=== PATIENT | female | born 1965 | race Caucasian/White ===

== ENCOUNTER 2017-07-04 17:12 | Inpatient (IN) | payer MEDICAID ==
[~2017-07-04] VITALS: Ht 157.5 cm; Wt 66.0 kg
--- NOTE | 2017-07-04 17:21 | NUR ---
PT AMBULATORY TO LOBBY WITH FAMILY. PT A&O X4, BREATHING E/U. PT AWAITING ROOM AVAILABILITY. EKG DONE IN TRIAGE AND SHOWN TO DOCTOR
--- NOTE | 2017-07-04 17:34 | NUR ---
RECEIVED AWAKE ALERT ORIENTED, C/O LT UPPER CHEST PAIN INCREASES ON ACTIVITY,TAKING DEEP BREATHS AND TENDER TO TOUCH SINCE YESTERDAY,
--- NOTE | 2017-07-04 18:11 | NUR ---
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 EASY
[2017-07-04 18:19] LABS: BASOPHIL % 0.5 % (0-2); PLATELET COUNT 178 x10^3mcL (130-400); RED CELL DISTRIBUTION WIDTH 14.5 % (11.5-14.5)
[2017-07-04 18:30] LABS: ALBUMIN 3.6 g/dL (3.4-5.0); ALKALINE PHOSPHATASE 81 U/L (46-116); ALT/SGPT 27 U/L (14-59); AST/SGOT 16 U/L (15-37); CALCIUM 8.9 mg/dL (8.5-10.1); CARBON DIOXIDE 23.3 mmol/L (21-32); CHLORIDE SERUM 102 mmol/L (98-107); CREATININE SERUM 0.8 mg/dL (0.6-1.0); GFR1 > 60 mL/min; GLUCOSE SERUM 102 mg/dL (74-106); POTASSIUM SERUM 3.5 mmol/L (3.5-5.1); SODIUM SERUM 138 mmol/L (136-145); TOTAL PROTEIN, SERUM 7.8 g/dL (6.4-8.2)
--- NOTE | 2017-07-04 19:05 | NUR ---
RECEIVED REPORT FROM MARINE HEARD. PT RESTING IN BED WITH EYES CLOSED. NO SIGNS OF DISTRESS NOTED AT THIS TIME.
[2017-07-04 20:18] LABS: AMPHETAMINE QUAL UR NONE DETECTED (NEG <=1000)
--- NOTE | 2017-07-04 20:20 | NUR ---
MED STUDENT AT BEDSIDE FOR INTERVIEW/EXAM. DAUGHTER AT BEDSIDE.
[2017-07-04] MEDS ORDERED: ASPIR 8181 MG PO (20:23)
[2017-07-04] MEDS ORDERED: FENOFIBRATE145 M1 PO (20:23)
--- NOTE | 2017-07-04 20:34 | NUR ---
REPORT GIVEN TO LUCAS HEARD.
[2017-07-04 20:39] LABS: microscopic required? NO
[2017-07-04 20:43] LABS: UA SPECIFIC GRAVITY 1.015 (1.005-1.035); urine erythrocyte NEGATIVE (NEGATIVE)
[2017-07-04 20:49] LABS: CHOLESTEROL/HDL RATIO 4.9; PHOSPHOROUS 3.8 mg/dL (2.5-4.9)
[2017-07-04 20:54] LABS: T3 TOTAL 1.08 ng/mL
[2017-07-04 21:00] LABS: FREE T4 0.96 ng/dL (0.76-1.46); FREE THYROXINE INDEX 3.1 ug/dL (1.4-4.5); T4(THYROXINE) 9.2 ug/dL (4.7-13.3)
--- NOTE | 2017-07-04 21:00 | NUR ---
REC'D PT FROM [facility]IA [place]. PT IS AAOX4. TELE #8 SR WITH DEPRESSED T-WAVE. C/O 8/10 CP. LUNG SOUNDS CLEAR. NO SOB NOTED. IV NOTED TO LAC. INTACT AND PATENT. ORIENTED PT TO CALL LIGHT. BED IN LOWEST POSITION. WILL ENDORSE TO PRIMARY RN.
[2017-07-04 21:01] VITALS: BP 142/89
--- NOTE | 2017-07-04 21:20 | NUR ---
REC'D REPORT FROM ALBERTO HEARD. DAUGHTER AT BEDSIDE. PT AAOX4, SPEECH CLEAR, FOLLOWS COMMANDS. [place] SPEAKING. REPORTS SOME ANXIETY. ON TELE 8 READING NSR. C/O 8/10 CP EXACERBATED BY MOVEMENT, DEEP BREATHS, AND PALPATION. WILL GIVE MORPHINE PER ORDER. DENIES RESP DISTRESS OR SOB. BREATHING EVEN/UNLABORED ON RA. NO EDEMA NOTED. DENIES ABD PAIN, TENDERNESS, OR N/V. VOIDING FREELY. AMBULATORY. SKIN INTACT. PT ORIENTED TO SURROUNDING AND DEVICES. CALL LIGHT WITHIN REACH, BED AT LOWEST POSITION. WILL CONTINUE TO MONITOR.
--- NOTE | 2017-07-04 21:30 | NUR ---
DR. GARCIA AND MEDICAL STUDENT IN TO SEE PT.
--- NOTE | 2017-07-04 23:21 | NUR ---
PT RESTING IN BED WITH EYES CLOSED. DAUGHTER AT BEDSIDE. DENIES PAIN AT THIS TIME. WILL CONTINUE TO MONITOR.
--- NOTE | 2017-07-05 02:04 | NUR ---
PT RESTING IN BED WITH EYES CLOSED. DAUGHTER AT BEDSIDE. NO SIGNS OF DISTRESS NOTED. BREATHING EVEN/UNLABORED ON RA. CALL LIGHT WITHIN REACH, BED AT LOWEST POSITION. WILL CONTINUE TO MONITOR.
--- NOTE | 2017-07-05 05:52 | NUR ---
PT RESTING IN BED. DAUGHTER AT BEDSIDE. DENIES ANY CP OR DISCOMFORT AT THIS TIME. DENIES RESP DISTRESS OR ANXIETY. BS 103, NO COVERAGE. CALL LIGHT WITHIN REACH, BED AT LOWEST POSITION. WILL ENDORSE TO DAY NURSE.
[2017-07-05 06:02] VITALS: BP 132/70
--- NOTE | 2017-07-05 08:07 | NUR ---
AT 0705 - RECEIVED PATIENT FROM NIGHT NURSE. PATIENT AWAKE, ALERT AND ORIENTED. MONITOR SHOWING SINUS RHYTHM; RATE 70'S. DENIES ANY CHEST PAIN. IV INFUSING NS AT 100ML/HR. AT 0730 - SITTING ON SIDE OF BED EATING BREAKFAST.
--- NOTE | 2017-07-05 09:01 | NUR ---
AT 0737 - SEEN BY DR TEJADA DURING MORNING ROUNDS. DR HAGER, DR DIGGS, HELLEN FOSS AND MYSELF PRIMARY NURSE ALSO PRESENT. DR TEJADA SPOKE WITH PATIENT IN [place]. PATIENT VERBALIZED WISH TO LEAVE AMA TODAY.
[2017-07-05 09:21] VITALS: BP 135/80
--- NOTE | 2017-07-05 11:41 | NUR ---
AT 1100 - PATIENT PROVIDED WITH PRINTED INFORMATION OF CHOLSTEROL AND DIET. PATIENT RESPONSIVE TO LIFESTYLE MODIFICATIONS. PATIENT ASKING ABOUT LEAVING HOSPITAL. AT 1130 - DR BENAVIDES HAS SPOKEN WITH PATIENT AND AMA FORM SIGNED. IV INFUSION DISCONTINUED AND PATIENT TAKEN OFF CARDIAC MONITORING. AWAITING PRESCRIPTION PROMISED BY DR TEJADA.
--- NOTE | 2017-07-05 11:55 | NUR ---
AT 1150 - PATIENT PROVIDED WITH PRESCRIPTION FOR IBUPROFEN 600 MG. INSTRUCTED TO FOLLOW-UP WITH PCP. IV CATHETER REMOVED ITNACT. PATIENT LEFT AMA WITH FAMILY. ESCORTED AMBULATORY TO FRONT LOBBY.
--- NOTE | 2017-07-05 12:42 | NUR ---
ECHO NOT DONE PT DISCHARGED
== END 2017-07-05 11:52 | disposition left against medical advice (07) | DRG 203 ==
LOC: ED 17:12 → DU 20:06
PROVIDERS: Emergency Medicine; Student in an Organized Health Care Education/Training Program; ADMIT Family Medicine
DX: M94.0 Chondrocostal junction syndrome [Tietze] (principal); I10 Essential (primary) hypertension; R73.03 Prediabetes; E78.2 Mixed hyperlipidemia; Z53.29 Procedure and treatment not carried out because of patient's decision for other reasons; Z68.26 Body mass index [BMI] 26.0-26.9, adult
CPT/HCPCS: 83880; 84439; J2270; J7030; Q0092

== ENCOUNTER 2018-01-06 21:56 | Emergency (ER) | payer MEDICAID ==
[~2018-01-06] VITALS: Ht 157.5 cm; Wt 66.2 kg
[~2018-01-06 21:56] MED LIST: ASPIR 8181 MG PO; FENOFIBRATE145 M1 PO
[2018-01-06 22:10] VITALS: Ht 157.5 cm; Wt 66.2 kg
[2018-01-07 00:09] VITALS: BP 154/90
== END 2018-01-07 00:09 | disposition home or self-care (01) ==
LOC: ED 21:56
DX: J11.1 Influenza due to unidentified influenza virus with other respiratory manifestations (principal)
CPT/HCPCS: Q0092

== ENCOUNTER 2018-12-30 02:30 | Emergency (ER) | payer MEDICAID ==
[~2018-12-30] VITALS: Ht 157.5 cm; Wt 67.3 kg
[2018-12-30 02:55] VITALS: Ht 157.5 cm; Wt 67.3 kg
[2018-12-30 05:33] VITALS: BP 146/93
== END 2018-12-30 05:33 | disposition home or self-care (01) ==
LOC: ED 02:30
DX: K29.70 Gastritis, unspecified, without bleeding (principal); J32.9 Chronic sinusitis, unspecified; E78.00 Pure hypercholesterolemia, unspecified; Z90.710 Acquired absence of both cervix and uterus

== ENCOUNTER 2020-08-31 21:33 | Emergency (ER) | payer MEDICAID ==
[~2020-08-31] VITALS: Ht 157.5 cm; Wt 66.8 kg
[2020-08-31 21:45] VITALS: Ht 157.5 cm; Wt 66.8 kg
[2020-08-31 23:42] VITALS: BP 150/72
== END 2020-08-31 23:42 | disposition home or self-care (01) ==
LOC: ED 21:33
DX: I88.9 Nonspecific lymphadenitis, unspecified (principal); J45.909 Unspecified asthma, uncomplicated; I10 Essential (primary) hypertension; Z90.710 Acquired absence of both cervix and uterus
CPT/HCPCS: Q0092